=== PATIENT | female | born 1990 | race African-American/Black ===

== ENCOUNTER 2023-04-01 20:41 | Emergency (ER) | payer OTHER ==
[2023-04-01 21:14] VITALS: PULSE 83; BMI 30.7
[2023-04-01 21:21] LABS: HCG,QUALITATIVE URINE Negative
[2023-04-01 21:22] LABS: HEMATOCRIT 30.8 % (32.4-45.2); HEMOGLOBIN 9.6 G/dL (10.7-15.3); MCH 22.2 pg (25.7-33.7); MCHC 31.1 g/dl (32.0-36.0); MEAN CELL VOLUME 71.4 fl (80-96); PLATELET COUNT 488.2 10^3/uL (134-434); RBC 4.32 10^6/uL (3.60-5.2); RDW 20.2 % (11.6-15.6); WHITE BLOOD COUNT 6.6 10^3/uL (4.0-10.8)
[2023-04-01] MEDS ORDERED: ACETAMINOPHEN 1000 MG/100 ML BAG IVPB ONE (21:25)
[2023-04-01] MEDS ORDERED: ONDANSETRON 4 MG/2 ML VIAL IVPB ONE (21:25)
[2023-04-01] MEDS ORDERED: FAMOTIDINE 20 MG/50 ML IVPB 20 MG/50 ML MG IVPB ONE ×2 (21:25→21:28)
[2023-04-01] MEDS ORDERED: SODIUM CHLORIDE 1,000 ML IV STA (21:26)
[2023-04-01] MEDS ORDERED: ONDANSETRON 4 MG/2 ML VIAL ONE (21:28)
[2023-04-01] MEDS ORDERED: ACETAMINOPHEN INJECTION 100 ML IVPB ONE (21:29)
[2023-04-01 21:47] LABS: ALBUMIN 4.1 g/dl (3.4-5.0); BILIRUBIN,TOTAL 0.2 mg/dl (0.2-1); CALCIUM 9.8 mg/dl (8.5-10.1); CREATININE 0.8 mg/dl (0.6-1.3); POTASSIUM 4.3 mmol/L (3.5-5.1); TOT PROT 7.4 g/dl (6.4-8.2)
[2023-04-01 21:57] LABS: PLATELET ESTIMATE SLT INCREASE
[2023-04-01 22:08] LABS: EPITHELIAL CELLS 0-5 /hpf
[2023-04-01 22:57] VITALS: BP 107/48; RESP 18; TEMP 98.7
== END 2023-04-01 23:06 | disposition home or self-care (01) ==
LOC: FER 20:41
PROC: 3E033GC Introduction of Other Therapeutic Substance into Peripheral Vein, Percutaneous Approach (ICD-10-PCS; principal; 2023-04-01)
PROC: 3E033NZ Introduction of Analgesics, Hypnotics, Sedatives into Peripheral Vein, Percutaneous Approach (ICD-10-PCS; 2023-04-01)
PROC: 3E033GC Introduction of Other Therapeutic Substance into Peripheral Vein, Percutaneous Approach (ICD-10-PCS; 2023-04-01)
PROC: 3E0337Z Introduction of Electrolytic and Water Balance Substance into Peripheral Vein, Percutaneous Approach (ICD-10-PCS; 2023-04-01)
DX: R10.9 Unspecified abdominal pain (principal); R11.2 Nausea with vomiting, unspecified; K52.9 Noninfective gastroenteritis and colitis, unspecified
CPT/HCPCS: 36415; 80053; 81003; 81015; 84703; 85027; 99284-25